=== PATIENT | female | born 1985 ===

== ENCOUNTER → 2023-12-18 07:29 | Outpatient (REF) | payer OTHER, SELFPAY | LOC: RCS 07:29 | PROVIDERS: ATTENDING PHYSICIAN Internal Medicine Interventional Cardiology; FAMILY PHYSICIAN Family Medicine | DX: Q23.1 Congenital insufficiency of aortic valve (principal); R06.02 Shortness of breath | CPT/HCPCS: 93306 ==

== ENCOUNTER → 2024-01-11 10:56 | Outpatient (REF) | payer OTHER, SELFPAY | LOC: DHCBC/DCA 10:56 | PROVIDERS: ATTENDING PHYSICIAN Internal Medicine Interventional Cardiology; FAMILY PHYSICIAN Family Medicine | DX: Q23.1 Congenital insufficiency of aortic valve (principal); R06.02 Shortness of breath | CPT/HCPCS: 78452; 93017; A9500 ==